=== PATIENT | female | born 1970 | race Caucasian/White ===

== ENCOUNTER → 2016-11-29 | Outpatient (CLI) | payer MEDICARE, MEDICAID ==
--- NOTE | ~2016-11-29 | ECHO ---
Stress Echocardiography Report Demographics Patient Name WILIAN ORTIZ Date of Study 11/29/2016 Patient Number [id number] Visit Number [id number] Date of 1970 Room Number Gender Female Number Age 45 year(s) Referring Christiano Hawley Housekeeping Lead Physician Physician Interpreting Christiano Hawley Manager Of Software Development Physician Supervising Christiano Hawley Ordering Christiano Hawley MD/HIL[facility] Physician Nurse Joanna Coronado RN Stress Cotton Sampler Arianna Breen [facility] Conclusions Summary No inducible ischemia. LV decreases in size appropriately with stress. Procedure Type of Study Stress procedure:Pharm Stress Echo w/o Contrast, Dobutamine Stress Echo [place]. Procedure Date Date: 11/29/2016 Start: 10:55 AM Rest ECG RSR Pre-Stress Physical Exam Un changed. Stress Peak HR: 148 bpm Predicted HR: 176 bpm % of predicted HR: 84 Results ECG i mm ST depression at peak heart rate only in leads 2,avf and V6. Arrhythmias No rhythm abnormality. Symptoms Pounding in head. Chest tightness and SOB. Procedure Medications - Dobutamine I.V. 5 mg/kg/min. - Dobutamine I.V. 10 mg/kg/min. - Dobutamine I.V. 20 mg/kg/min. - Dobutamine I.V. 40 mg/kg/min. - Atropine I.V. 0.5 mg. Signature dtt: Marleen Alvarado dtd: 11/29/16 1055 Physician Self Edit
== END | disposition disaster alternative care site (69) ==
LOC: GRAD 06:13
DX: R06.02 Shortness of breath (principal)
CPT/HCPCS: J1250; Q9957